=== PATIENT | male | born 1975 | race Caucasian/White ===

== ENCOUNTER 2020-11-19 03:13 | Emergency (ER) | payer SELFPAY ==
[~2020-11-19] VITALS: Ht 175.3 cm; Wt 72.7 kg
[2020-11-19 03:24] VITALS: TEMP 98.2
[2020-11-19 03:47] LABS: BASO % 0.3 % (0.0-2.0); EOS # 0.1 (0.0-0.7); GRAN # 7.8 (1.4-6.5); HEMATOCRIT 38.1 % (42.0-52.0); HEMOGLOBIN 13.5 g/dl (13.5-18.0); LYMPH # 1.6 (1.2-3.4); LYMPH % 15.9 % (20.0-51.0); MEAN CELL VOLUME 89 fl (80.0-100.0); MEAN CORPUSCULAR HEMOGLOBIN 32 pg (27.0-31.0); MEAN CORPUSCULAR HGB CONC 35 g/dl (33.0-37.0); MEAN PLATELET VOLUME 9.4 fl (7.4-10.4); MONO # 0.7 (0.1-0.6); MONO % 6.4 % (1.7-9.3); PLATELET COUNT 188 K/mm3 (130-400); RED BLOOD COUNT 4.27 M/mm3 (4.20-5.60); REDCELL DISTRIBUTION WIDTH-CV 12.2 % (11.5-14.5)
[2020-11-19 03:58] LABS: ALANINE AMINOTRANSFERASE 59 U/L (4-49); ALBUMIN 4.2 gm/dL (3.5-5.0); ALKALINE PHOSPHATASE 75 U/L (50-136); ANION GAP 10 mmol/L (7-16); AST,SGOT 55 U/L (15-37); BILIRUBIN,TOTAL 0.6 mg/dL (0.0-1.0); BLOOD UREA NITROGEN 9 mg/dL (9-20); CALCIUM 9.3 mg/dL (8.4-10.2); CARBON DIOXIDE 19 mmol/L (22-30); CHLORIDE 104 mmol/L (98-107); CREATININE, serum 0.57 (0.66-1.25); GLUCOSE 157 mg/dL (74-106); POTASSIUM 4.4 mmol/L (3.4-5.0); SODIUM 133 mmol/L (137-145); TOTAL PROTEIN 7.2 gm/dL (6.4-8.2)
[2020-11-19] MEDS ORDERED: CIPRODEX OT (04:12)
[2020-11-19 04:16] LABS: TROPONIN-I < 0.012 ng/mL (0.000-0.035)
[2020-11-19 04:54] VITALS: BP 148/99; PULSE 71
== END 2020-11-19 04:54 | disposition home or self-care (01) ==
LOC: COL.ER 03:13
PROVIDERS: Emergency Medicine
DX: R04.0 Epistaxis (principal); E86.0 Dehydration; R51.9 Headache, unspecified; I10 Essential (primary) hypertension; H60.92 Unspecified otitis externa, left ear; H66.92 Otitis media, unspecified, left ear
CPT/HCPCS: J0360; J2270; J2765; J7030